=== PATIENT | female | born 1975 ===

== ENCOUNTER → 2024-06-27 10:36 | Outpatient (REF) | payer OTHER, SELFPAY | LOC: PAVMRI 10:36 | PROVIDERS: ATTENDING PHYSICIAN Physical Medicine & Rehabilitation | DX: M54.16 Radiculopathy, lumbar region (principal); M54.17 Radiculopathy, lumbosacral region; M46.1 Sacroiliitis, not elsewhere classified | CPT/HCPCS: 72148 ==

== ENCOUNTER → 2024-08-04 10:05 | Outpatient (REF) | payer OTHER, SELFPAY | LOC: MRI 3T 10:05 | PROVIDERS: ATTENDING PHYSICIAN Physical Medicine & Rehabilitation | DX: M54.12 Radiculopathy, cervical region (principal) | CPT/HCPCS: 72141 ==

== ENCOUNTER → 2024-12-14 08:53 | Outpatient (REF) | payer OTHER, SELFPAY | LOC: PAVMRI 08:53 | DX: M25.572 Pain in left ankle and joints of left foot (principal); M84.372A Stress fracture, left ankle, initial encounter for fracture | CPT/HCPCS: 73721 ==